=== PATIENT | female | born 1990 | race Caucasian/White ===

== ENCOUNTER 2024-09-19 20:44 | Emergency (ER) | payer OTHER ==
[~2024-09-19] VITALS: Ht 170.2 cm; Wt 68.0 kg
[2024-09-19 22:12] VITALS: BP 119/75; TEMP 98.4; O2SAT 100
== END 2024-09-19 23:20 | disposition left against medical advice (07) ==
LOC: ER 20:54
DX: N93.9 Abnormal uterine and vaginal bleeding, unspecified (principal); R55 Syncope and collapse; Z60.2 Problems related to living alone; Z53.29 Procedure and treatment not carried out because of patient's decision for other reasons